=== PATIENT | male | born 1965 | race Native Hawaiian/Other Pacific Islander ===

== ENCOUNTER 2020-07-30 11:07 | Inpatient (IN) | payer BC, OTHER ==
[~2020-07-30] VITALS: Ht 182.9 cm; Wt 89.4 kg
[2020-07-30 16:38] LABS: PLATELET COUNT 179 K/uL (142-355)
[2020-07-30 17:47] LABS: POTASSIUM 3.7 mmol/L (3.6-5.2)
[2020-07-30 20:00] VITALS: BP 120/69; TEMP 99.7
[2020-07-31] VITALS (13 sets, daily range): BP systolic 108–134; BP diastolic 60–80; TEMP 97.8–103; Ht 182.9 cm; Wt 89.4 kg
[2020-07-31 05:33] LABS: PLATELET COUNT 184 K/uL (142-355)
[2020-07-31 05:55] LABS: POTASSIUM 4.6 mmol/L (3.6-5.2)
[2020-07-31 17:43] LABS: PLATELET COUNT 205 K/uL (142-355)
[2020-08-01] VITALS (7 sets, daily range): BP systolic 106–127; BP diastolic 70–78; TEMP 97.8–98.4
[2020-08-01 05:08] LABS: PLATELET COUNT 189 K/uL (142-355)
[2020-08-01 05:31] LABS: POTASSIUM 4.4 mmol/L (3.6-5.2)
[2020-08-01 13:28] LABS: PLATELET COUNT 231 K/uL (142-355)
[2020-08-02 04:18] VITALS: BP 101/67; TEMP 98.1
[2020-08-02 05:41] LABS: PLATELET COUNT 200 K/uL (142-355)
[2020-08-02 06:02] LABS: POTASSIUM 4.5 mmol/L (3.6-5.2)
[2020-08-02 08:00] VITALS: BP 127/77; TEMP 98.1
[2020-08-02 12:00] VITALS: BP 126/67; TEMP 98
[2020-08-02 16:00] VITALS: BP 117/66; TEMP 98
[2020-08-02 20:00] VITALS: BP 109/69; TEMP 98.3
[2020-08-03 00:04] VITALS: BP 117/72; TEMP 98
[2020-08-03 04:00] VITALS: BP 114/71; TEMP 98.3
[2020-08-03 04:22] LABS: PLATELET COUNT 225 K/uL (142-355)
[2020-08-03 04:38] LABS: POTASSIUM 4.6 mmol/L (3.6-5.2)
[2020-08-03 08:00] VITALS: BP 118/87; TEMP 98.2
[2020-08-03 12:00] VITALS: BP 131/68; TEMP 98.2
[2020-08-03 16:00] VITALS: BP 112/72; TEMP 98
[2020-08-03 20:00] VITALS: BP 108/68; TEMP 98.6
[2020-08-04] VITALS: BP 101/68; TEMP 98.1
[2020-08-04 04:00] VITALS: BP 107/70; TEMP 98.1
[2020-08-04 05:58] LABS: POTASSIUM 4.4 mmol/L (3.6-5.2)
[2020-08-04 06:02] LABS: PLATELET COUNT 289 K/uL (142-355)
[2020-08-04 08:00] VITALS: BP 100/61; TEMP 98.1
== END 2020-08-04 12:20 | disposition home or self-care (01) | DRG 177 ==
LOC: RAD 11:07 → MED/SURG 15:14
PROVIDERS: ADMIT Family Medicine; ATTEND Family Medicine
PROC: 30233K1 Transfusion of Nonautologous Frozen Plasma into Peripheral Vein, Percutaneous Approach (ICD-10-PCS; principal; 2020-07-31)
DX: U07.1 COVID-19 (principal); J18.8 Other pneumonia, unspecified organism; C91.40 Hairy cell leukemia not having achieved remission; D70.8 Other neutropenia; D64.89 Other specified anemias; F41.8 Other specified anxiety disorders; R53.83 Other fatigue; R50.9 Fever, unspecified; R74.8 Abnormal levels of other serum enzymes
CPT/HCPCS: 36415; 80053; 82728; 83735; 84100; 85027; 85379; 85652; 86140; 86900; 86901; 87040; 90686; 93005; 94667; 94668; 94760; 96365; 96367; 96372; 96375; J0456; J0696; J1100; J1650; P9017

== ENCOUNTER 2023-01-02 11:17 | Emergency (ER) | payer BC ==
[~2023-01-02] VITALS: Ht 182.9 cm; Wt 93.0 kg
[2023-01-02 11:52] LABS: PLATELET COUNT 180 K/uL (142-355)
[2023-01-02 12:05] LABS: PARTIAL THROMBOPLASTIN TIME 40.8 SECONDS (23.9-36.7); POTASSIUM 3.8 mmol/L (3.6-5.2)
[2023-01-02 13:36] VITALS: BP 126/83; TEMP 97.8
== END 2023-01-02 13:36 | disposition home or self-care (01) ==
LOC: ED 11:17
PROVIDERS: Family Medicine
DX: I49.9 Cardiac arrhythmia, unspecified (principal)
CPT/HCPCS: 36415; 80053; 82550; 84484; 85027; 85379; 85610; 85730; 93005; 96360; 99284